=== PATIENT | female | born 1990 | race Caucasian/White ===

== ENCOUNTER 2021-02-09 16:33 | Inpatient (IN) | payer OTHER ==
[2021-02-09 17:13] VITALS: BMI 24.3
[2021-02-09] MEDS ORDERED: MAG HYDROX/AL HYDROX/SIMETH 30 ML UNIT-DOSE CUP PO PRN (18:38)
[2021-02-09] MEDS ORDERED: METHOCARBAMOL 500 MG TABLET PO PRN (18:38)
[2021-02-09] MEDS ORDERED: MENTHOL/PHENOL 1 EACH UD MM PRN (18:38)
[2021-02-09] MEDS ORDERED: ACETAMINOPHEN 325 MG TABLET (FP) PO PRN ×2 (18:38)
[2021-02-09] MEDS ORDERED: MAGNESIUM CITRATE 300 ML BOTTLE PO PRN (18:38)
[2021-02-09] MEDS ORDERED: ONDANSETRON *ODT* 4 MG TABLET SL PRN (18:38)
[2021-02-09] MEDS ORDERED: IBUPROFEN 400 MG TABLET (FP) PO PRN (18:38)
[2021-02-09] MEDS ORDERED: MAGNESIUM HYDROX 2400MG/30ML ORAL SUSPENSION 30 ML CUP PO PRN (18:38)
[2021-02-09] MEDS ORDERED: BISMUTH SUBSALICYLATE 524 MG/30 ML UD PO PRN (18:38)
[2021-02-09] MEDS ORDERED: chlordiazePOXIDE HCL 25 MG CAPSULE PO PRN (18:39)
[2021-02-09] MEDS ORDERED: chlordiazePOXIDE HCL 25 MG CAPSULE PO ONE (18:39)
[2021-02-09] MEDS: hydrOXYzine PAMOATE 25 MG CAPSULE (FP) PO PRN (20:22)
[2021-02-09] MEDS: MELATONIN 5 MG TABLETS PO SCH (21:58)
[2021-02-09] MEDS: THIAMINE HCL 100 MG TABLET (FP) PO SCH (21:58)
[2021-02-09] MEDS: chlordiazePOXIDE HCL 25 MG CAPSULE PO SCH (21:59)
[2021-02-10] MEDS: chlordiazePOXIDE HCL 25 MG CAPSULE PO SCH ×4 (05:47→22:21)
[2021-02-10 09:53] LABS: HEMATOCRIT 35.5 % (32.4-45.2); HEMOGLOBIN 11.5 GM/dL (10.7-15.3); MCH 31.5 pg (25.7-33.7); MCHC 32.4 g/dl (32.0-36.0); MEAN CELL VOLUME 97.2 fl (80-96); MEAN PLT VOLUME 7.9 fl (7.5-11.1); PLATELET COUNT 181 K/MM3 (134-434); RBC 3.65 M/mm3 (3.60-5.2); RDW 17.4 % (11.6-15.6); WHITE BLOOD COUNT 4.4 K/mm3 (4.0-10.0)
[2021-02-10] MEDS: PRENATAL VITAMINS W/ FOLIC ACID TABLET (FP) PO SCH (10:43)
[2021-02-10] MEDS: hydrOXYzine PAMOATE 25 MG CAPSULE (FP) PO PRN ×2 (10:45→22:21)
[2021-02-10 11:37] LABS: CALCIUM 8.3 mg/dL (8.5-10.1)
[2021-02-10 11:41] LABS: CREATININE 0.7 mg/dL (0.55-1.3)
[2021-02-10 11:42] LABS: BILIRUBIN,TOTAL 0.6 mg/dL (0.2-1); TOT PROT 6.6 g/dl (6.4-8.2)
[2021-02-10 11:44] LABS: BLOOD UREA NITROGEN 8.8 mg/dL (7-18)
[2021-02-10 14:36] LABS: HIV INTERPRETATION NEGATIVE (NEGATIVE)
[2021-02-10] MEDS: MELATONIN 5 MG TABLETS PO SCH (22:20)
[2021-02-10] MEDS: THIAMINE HCL 100 MG TABLET (FP) PO SCH (22:20)
[2021-02-11] MEDS: chlordiazePOXIDE HCL 25 MG CAPSULE PO SCH ×4 (06:38→22:05)
[2021-02-11] MEDS: LEVOTHYROXINE 100 MCG, LEVOTHYROXINE 50 MCG PO SCH (07:50)
[2021-02-11] MEDS ORDERED: LEVOTHYROXINE NA 150 MCG TABLET PO SCH (10:00)
[2021-02-11] MEDS: PRENATAL VITAMINS W/ FOLIC ACID TABLET (FP) PO SCH (10:28)
[2021-02-11] MEDS ORDERED: POTASSIUM CHLORIDE TABS 20 MEQ TABLET.ER (FP) PO ONE ×2 (11:46→18:00)
[2021-02-11] MEDS: THIAMINE HCL 100 MG TABLET (FP) PO SCH (22:05)
[2021-02-11] MEDS: MELATONIN 5 MG TABLETS PO SCH (22:06)
[2021-02-12] MEDS ORDERED: chlordiazePOXIDE HCL 10 MG CAPSULE PO PRN
[2021-02-12] MEDS: chlordiazePOXIDE HCL 10 MG CAPSULE PO SCH ×2 (06:59→10:56)
[2021-02-12] MEDS: LEVOTHYROXINE 100 MCG, LEVOTHYROXINE 50 MCG PO SCH (07:00)
[2021-02-12 09:47] VITALS: BP 117/89; PULSE 51; TEMP 97.1
[2021-02-12] MEDS: PRENATAL VITAMINS W/ FOLIC ACID TABLET (FP) PO SCH (10:56)
[2021-02-13] MEDS ORDERED: chlordiazePOXIDE HCL 10 MG CAPSULE PO SCH (05:00)
[2021-02-14] MEDS ORDERED: chlordiazePOXIDE HCL 10 MG CAPSULE PO ONE (05:00)
== END 2021-02-12 14:09 | disposition home or self-care (01) | DRG 775 ==
LOC: YASAS 16:33 → Y3N 19:08
PROVIDERS: ADMIT Allergy & Immunology; ATTEND Allergy & Immunology
PROC: HZ2ZZZZ Detoxification Services for Substance Abuse Treatment (ICD-10-PCS; principal; 2021-02-09)
DX: F10.230 Alcohol dependence with withdrawal, uncomplicated (principal); F10.220 Alcohol dependence with intoxication, uncomplicated; F17.210 Nicotine dependence, cigarettes, uncomplicated; E87.6 Hypokalemia; E03.9 Hypothyroidism, unspecified; J45.909 Unspecified asthma, uncomplicated; Z91.013 Allergy to seafood
CPT/HCPCS: 36415; 80053; 81025; 84132; 85027; 86780; 87389; C9803; U0003

== ENCOUNTER 2021-10-19 10:18 | Inpatient (IN) | payer OTHER ==
[2021-10-19 10:49] VITALS: BMI 25.2
[2021-10-19] MEDS ORDERED: BISMUTH SUBSALICYLATE 262 MG/15 ML BTL PO PRN (11:24)
[2021-10-19] MEDS ORDERED: MAGNESIUM CITRATE 300 ML BOTTLE PO PRN (11:24)
[2021-10-19] MEDS ORDERED: ONDANSETRON *ODT* 4 MG TABLET SL PRN (11:24)
[2021-10-19] MEDS ORDERED: diazePAM 5 MG TABLET PO PRN (11:24)
[2021-10-19] MEDS ORDERED: ACETAMINOPHEN 325 MG TABLET (FP) PO PRN (11:24)
[2021-10-19] MEDS ORDERED: MAGNESIUM HYDROX 2400MG/30ML ORAL SUSPENSION 30 ML CUP PO PRN (11:24)
[2021-10-19] MEDS ORDERED: NICOTINE 10 MG CARTRIDGE (INHALER) IH PRN (11:24)
[2021-10-19] MEDS ORDERED: MENTHOL/PHENOL 1 EACH UD MM PRN (11:24)
[2021-10-19 13:56] LABS: HEMATOCRIT 36.4 % (32.4-45.2); HEMOGLOBIN 12.1 GM/dL (10.7-15.3); MCH 31.1 pg (25.7-33.7); MCHC 33.3 g/dl (32.0-36.0); MEAN CELL VOLUME 93.4 fl (80-96); MEAN PLT VOLUME 7.3 fl (7.5-11.1); PLATELET COUNT 278 10^3/uL (134-434); RDW 18.1 % (11.6-15.6); WHITE BLOOD COUNT 8.4 K/mm3 (4.0-10.0)
[2021-10-19 14:14] LABS: ALBUMIN 3.9 g/dl (3.4-5.0)
[2021-10-19 14:15] LABS: BLOOD UREA NITROGEN 9.2 mg/dL (7-18); CALCIUM 7.8 mg/dL (8.5-10.1)
[2021-10-19 14:18] LABS: CREATININE 0.9 mg/dL (0.55-1.3)
[2021-10-19 14:21] LABS: BILIRUBIN,TOTAL 0.5 mg/dL (0.2-1); TOT PROT 8.1 g/dl (6.4-8.2)
[2021-10-19] MEDS: hydrOXYzine PAMOATE 25 MG CAPSULE (FP) PO SCH ×3 (15:00→22:13)
[2021-10-19] MEDS: METHOCARBAMOL 500 MG TABLET PO PRN (15:01)
[2021-10-19] MEDS: ALBUTEROL SO4 HFA INHALER IH PRN (17:45)
[2021-10-19] MEDS: diazePAM 5 MG TABLET PO SCH ×2 (17:45→22:14)
[2021-10-19] MEDS: MELATONIN 5 MG TABLETS PO SCH (22:13)
[2021-10-19] MEDS: THIAMINE HCL 100 MG TABLET (FP) PO SCH (22:13)
[2021-10-19] MEDS: ACETAMINOPHEN 325 MG TABLET (FP) PO PRN (22:13)
[2021-10-20] MEDS: diazePAM 5 MG TABLET PO SCH ×4 (05:39→22:27)
[2021-10-20] MEDS: hydrOXYzine PAMOATE 25 MG CAPSULE (FP) PO SCH ×2 (05:39→10:35)
[2021-10-20] MEDS ORDERED: LEVOTHYROXINE PO SCH (10:00)
[2021-10-20] MEDS: PRENATAL VITAMINS W/ FOLIC ACID TABLET (FP) PO SCH (10:34)
[2021-10-20] MEDS: ACETAMINOPHEN 325 MG TABLET (FP) PO PRN ×2 (10:35→18:09)
[2021-10-20] MEDS: hydrOXYzine PAMOATE 25 MG CAPSULE (FP) PO PRN ×3 (11:35→22:27)
[2021-10-20] MEDS ORDERED: LEVOTHYROXINE 100 MCG, LEVOTHYROXINE 50 MCG PO ONE (13:15)
[2021-10-20] MEDS ORDERED: LEVOTHYROXINE NA 150 MCG TABLET PO ONE (13:15)
[2021-10-20] MEDS: THIAMINE HCL 100 MG TABLET (FP) PO SCH (22:27)
[2021-10-20] MEDS: MELATONIN 5 MG TABLETS PO SCH (22:28)
[2021-10-20] MEDS: METHOCARBAMOL 500 MG TABLET PO PRN (22:28)
[2021-10-21] MEDS: diazePAM 5 MG TABLET PO SCH ×3 (05:44→22:43)
[2021-10-21] MEDS ORDERED: LEVOTHYROXINE NA 150 MCG TABLET PO SCH (07:00)
[2021-10-21] MEDS: LEVOTHYROXINE 100 MCG, LEVOTHYROXINE 50 MCG PO SCH (07:04)
[2021-10-21] MEDS: MAG HYDROX/AL HYDROX/SIMETH 30 ML UNIT-DOSE CUP PO PRN ×2 (10:38→22:41)
[2021-10-21] MEDS: PRENATAL VITAMINS W/ FOLIC ACID TABLET (FP) PO SCH (10:38)
[2021-10-21] MEDS: METHOCARBAMOL 500 MG TABLET PO PRN (17:16)
[2021-10-21] MEDS: MELATONIN 5 MG TABLETS PO SCH (22:10)
[2021-10-21] MEDS: THIAMINE HCL 100 MG TABLET (FP) PO SCH (22:10)
[2021-10-21] MEDS: IBUPROFEN 400 MG TABLET (FP) PO PRN (22:12)
[2021-10-21] MEDS: hydrOXYzine PAMOATE 25 MG CAPSULE (FP) PO PRN (22:41)
[2021-10-22] MEDS: diazePAM 5 MG TABLET PO SCH ×2 (05:41→17:12)
[2021-10-22] MEDS: LEVOTHYROXINE 100 MCG, LEVOTHYROXINE 50 MCG PO SCH (06:26)
[2021-10-22] MEDS: PRENATAL VITAMINS W/ FOLIC ACID TABLET (FP) PO SCH (10:25)
[2021-10-22] MEDS: METHOCARBAMOL 500 MG TABLET PO PRN (10:27)
[2021-10-22] MEDS: ALBUTEROL SO4 HFA INHALER IH PRN (17:13)
[2021-10-22] MEDS: ACETAMINOPHEN 325 MG TABLET (FP) PO PRN (17:13)
[2021-10-22] MEDS ORDERED: CALCIUM CARBONATE 650 MG TABLET PO SCH (22:00)
[2021-10-22] MEDS: MELATONIN 5 MG TABLETS PO SCH (22:09)
[2021-10-22] MEDS: THIAMINE HCL 100 MG TABLET (FP) PO SCH (22:09)
[2021-10-22] MEDS: IBUPROFEN 400 MG TABLET (FP) PO PRN (22:10)
[2021-10-22] MEDS: hydrOXYzine PAMOATE 25 MG CAPSULE (FP) PO PRN (22:11)
[2021-10-23] MEDS ORDERED: diazePAM 5 MG TABLET PO ONE (06:00)
[2021-10-23] MEDS: LEVOTHYROXINE 100 MCG, LEVOTHYROXINE 50 MCG PO SCH (06:06)
[2021-10-23 06:29] VITALS: BP 111/76
[2021-10-23 09:11] VITALS: PULSE 89; TEMP 97.9
[2021-10-23 13:36] LABS: SGOT/AST 119 U/L (15-37); SGPT/ALT 105 U/L (13-61)
== END 2021-10-23 09:52 | disposition home or self-care (01) | DRG 775 ==
LOC: YASAS 10:18 → Y3N 11:41
PROVIDERS: ADMIT Allergy & Immunology; ATTEND Allergy & Immunology
PROC: HZ2ZZZZ Detoxification Services for Substance Abuse Treatment (ICD-10-PCS; principal; 2021-10-19)
DX: F10.230 Alcohol dependence with withdrawal, uncomplicated (principal); F17.210 Nicotine dependence, cigarettes, uncomplicated; F10.24 Alcohol dependence with alcohol-induced mood disorder; F31.9 Bipolar disorder, unspecified; F41.9 Anxiety disorder, unspecified; E83.51 Hypocalcemia; E89.0 Postprocedural hypothyroidism; R74.01 Elevation of levels of liver transaminase levels
CPT/HCPCS: 36415; 80053; 81025; 84450; 84460; 85027; 86780; C9803; Q0162; U0003; U0005